=== PATIENT | female | born 2000 | race Caucasian/White ===

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

== ENCOUNTER 2024-01-22 13:46 | Emergency (ER) | payer MEDICAID, OTHER ==
[~2024-01-22] VITALS: Ht 165.1 cm; Wt 81.6 kg
[~2024-01-22 13:46] MED LIST: CEPH-588 PO; HUM SUBQ; INSU100I7 SQ
[2024-01-22] MEDS ORDERED: PRIMARY CRASH CART TRAY MC ONE (13:47)
== END 2024-01-22 13:48 ==
LOC: MED 13:46
DX: I46.9 Cardiac arrest, cause unspecified (principal); E11.9 Type 2 diabetes mellitus without complications; Z79.899 Other long term (current) drug therapy; Z79.4 Long term (current) use of insulin
CPT/HCPCS: 31500; 92950; 99285